=== PATIENT | male | born 1975 | race Caucasian/White ===

== ENCOUNTER 2025-10-31 06:30 | Emergency (ER) | payer MEDICAID, SELFPAY ==
[2025-10-31 06:32] VITALS: BMI 37.1
[2025-10-31 06:38] VITALS: BP 177/103; PULSE 97; RESP 18; TEMP 36.7; O2SAT 96
--- NOTE | 2025-10-31 06:51 | PD.EDBACK ---
ED Back Injury Pain RME/HPI General Chief Complaint: Back Pain/Injury Stated Complaint: BACK PAIN Time Seen by Provider: 10/31/25 06:31 Arrival date/time: 10/31/25 06:30 50-year-old male presents to the emergency department today for complaints of lower back pain patient reports pain worse with movement patient reports no fever nausea or vomiting. Limitations: no limitations Related Data Previous Rx's ?Medication ?Instructions ?Recorded cetirizine 10 mg capsule (Zyrtec) 10 mg PO QDAY PRN allergy symptoms 07/13/23 #30 caps cyclobenzaprine 10 mg tablet 10 mg PO TID PRN muscle spasm 10 10/31/25 days #30 tab-caps hydrocodone 5 mg-acetaminophen 325 1 tab PO BID PRN pain #10 tabs 10/31/25 mg tablet ibuprofen 800 mg tablet 800 mg PO TID PRN pain #30 tabs 10/31/25 Allergies Allergy/AdvReac Type Severity Reaction Status Date / Time No Known Allergies Allergy Verified 10/31/25 06:31 Review of Systems Review of Systems Systems Reviewed: All systems reviewed, normal except as documented Constitutional Constitutional: Reports system reviewed and no additional complaints, except as documented, Denies fever(s) and Denies headache(s) Eyes Eyes: Reports system reviewed and no additional complaints, except as documented and Denies blurry vision ENT Ears, Nose, Mouth, and Throat: Reports system reviewed and no additional complaints, except as documented, Denies headache(s), Denies nasal congestion and Denies nasal discharge Cardiovascular Cardiovascular: Reports system reviewed and no additional complaints, except as documented, Denies chest pain and Denies dyspnea Respiratory Respiratory: Reports system reviewed and no additional complaints, except as documented, Denies chest congestion, Denies cough and Denies dyspnea Gastrointestinal Gastrointestinal: Reports system reviewed and no additional complaints, except as documented and Denies abdominal pain Musculoskeletal Musculoskeletal: Reports system reviewed and no additional complaints, except as documented and Reports back pain Integumentary/Breasts Skin/Breast: Reports system reviewed and no additional complaints, except as documented and Denies rash Neurologic Neurologic: Reports system reviewed and no additional complaints, except as documented, Reports as per HPI and Denies headache(s) Past Medical History Social History SMOKING STATUS: Never smoker ED Exam General Limitations: Present no limitations General appearance: Present alert and in no apparent distress Head Head exam: Present atraumatic Eye Eye exam: Present normal appearance, PERRL and EOMI; Absent conjunctival injection ENT ENT exam: Present normal exam, normal oropharynx and mucous membranes moist Neck Neck exam: Present normal inspection, full ROM and trachea midline Chest Chest inspection: Present normal inspection and symmetric chest wall rise Respiratory Respiratory exam: Present normal lung sounds bilaterally Cardiovascular Cardiovascular exam: Present regular rate, normal rhythm and normal heart sounds Abdominal Exam Abdominal exam: Present soft and normal bowel sounds; Absent distention, tenderness, guarding, rebound or rigidity Extremities Exam Extremities exam: Present normal inspection and full ROM Back Exam Back exam: Present normal inspection, full ROM, tenderness, muscle spasm and paraspinal tenderness; Absent CVA tenderness (R) or CVA tenderness (L) Neurological Exam Neurological exam: Present alert, oriented X3 and CN II-XII intact Psychiatric Psychiatric exam: Present normal affect and normal mood Skin Skin exam: Present warm, dry, intact and normal color Course Quality Measures none Orders Category Date Time Status HYDROcodone*/APAP 5/325 [[place] 5/325] Med 10/31/25 06:47 Discontinued 1 tab PO X1 ONE Ketorolac Inj [Toradol Inj] Med 10/31/25 06:47 Discontinued 30 mg IM X1 ONE Vital Signs Vital signs: Vital Signs Temperature 98.1 F 10/31/25 06:38 Pulse Rate 97 10/31/25 06:38 Respiratory Rate 18 10/31/25 06:38 Blood Pressure 177/103 H 10/31/25 06:38 Pulse Oximetry (%) 96 10/31/25 06:38 Oxygen Delivery Method Room Air 10/31/25 06:38 O2 saturation 96% on room air within normal limits Back Pain / Injury MDM Narrative MDM Narrative:: 50-year-old male with medical history significant for hypertension and lower back pain presents to the emergency department today for complaints of lower back pain patient reports pain worse with movement patient reports no fever nausea or vomiting. Patient reports no saddle anesthesia no loss of bowel or bladder On exam well-appearing does not appear ill or toxic no acute distress Patient has a pain in the lower back patient reports this is acute on chronic for him Patient reports he will have a MRI scheduled by his PCP. Patient given pain medication here and discharged home Patient discharged home in no distress to follow-up with primary care doctor in the next 24 to 48 hours and for any worsening symptoms to return to the ER immediately Patient data External records reviewed:: [facility] previous records Clinical information provided by:: patient Social determinants that could affect healthcare access:: none Patient has the following chronic illnesses:: See history How is presenting disease/condition affected by chronic disease/condition?: caused by Evaluation data The following diagnostics were reviewed and interpreted by me:: other (specify) (N/A) Lab and/or radiology exams considered but not ordered:: Considered not ordered Interpretation Summary: N/A Medications / Prescriptions Medications or Prescriptions considered but not ordered:: Given Medication administrations:: Medication Administration History Discontinued Medications Hydrocodone Bitart/Acetaminophen (Hydrocodone/Apap 5/325 Tablet) 1 tab PO X1 ONE Stop: 10/31/25 06:48 Last Admin: 10/31/25 07:21 Dose: 1 tab Documented By: AGUSTIN Ketorolac Tromethamine (Ketorolac Inj 30 Mg/Ml Vial) 30 mg IM X1 ONE Stop: 10/31/25 06:48 Last Admin: 10/31/25 07:21 Dose: 30 mg Documented By: AGUSTIN Given Consultations Consultation(s) initiated? (list below): No Diagnosis Differential diagnosis back pain/injury: lumbar radiculopathy, sciatica and strain of lumbar region Most likely diagnosis given after review of the tests above:: Back pain Admission Indicated Admission indicated?: not indicated Admission Request Was there a request for admission?: No Disposition Plan Disposition Plan: Discharge Discharge Attestation Discharge Attestation: The patient and all family members were given an opportunity to ask questions and understood the discharge instructions. Discharge instructions specifically effects, indications for sooner follow up or return to the emergency department, and the expected course of current diagnosis. Patient condition: Stable Discharge Plan Plan Patient Disposition: HOME (Self Care) Discharge Disposition comment: Stable Prescriptions/Referrals Prescriptions/Med Rec: New cyclobenzaprine 10 mg tablet 10 mg PO TID PRN (Reason: muscle spasm) 10 Days Qty: 30 0RF ibuprofen 800 mg tablet 800 mg PO TID PRN (Reason: pain) Qty: 30 0RF hydrocodone-acetaminophen 5-325 mg tablet 1 tab PO BID MDD 10mg PRN (Reason: pain) Qty: 10 0RF No Action Zyrtec 10 mg capsule 10 mg PO QDAY PRN (Reason: allergy symptoms) Qty: 30 0RF Problem List Clinical Impression: Strain of lumbar region Patient/Caregiver Discharge Instructions Education Materials: ED Back Sprain/Strain Additional Instructions: Please follow up with your primary care doctor in the next 24-48hrs for any worsening symptoms return here immediately Print Language: Persian Stand Alone Forms: Bhavna Award Info., Patient Portal Info Letter PA/[employer]STRUCTION[employer] DES[employer]ER Supervising Physician PA/[employer] DES[employer] Supervising Physician: Dr. [email or web address]
[2025-10-31] MEDS: KETOROLAC INJ 30 MG/ML VIAL IM (07:21)
[2025-10-31] MEDS: HYDROcodone/APAP 5/325 TABLET 1 TAB PO (07:21)
== END 2025-10-31 08:15 | disposition home or self-care (01) ==
LOC: SERX 07:42
PROVIDERS: Emergency Provider Family Medicine; PCP Family Medicine
DX: S39.012A Strain of muscle, fascia and tendon of lower back, initial encounter (principal); X58.XXXA Exposure to other specified factors, initial encounter; I10 Essential (primary) hypertension
CPT/HCPCS: 96372; 99282; J1885; A9270